=== PATIENT | female | born 1975 | race African-American/Black ===

== ENCOUNTER 2020-04-04 07:44 | Emergency (ER) | payer MEDICAID, OTHER ==
[~2020-04-04] VITALS: Ht 162.6 cm; Wt 91.0 kg
[2020-04-04] MEDS ORDERED: KETOROLAC 60MG/2ML VIAL IM ONE (08:30)
[2020-04-04 11:39] VITALS: BP 131/76
== END 2020-04-04 11:42 | disposition home or self-care (01) ==
LOC: ER 07:44
DX: S40.012A Contusion of left shoulder, initial encounter (principal); S20.212A Contusion of left front wall of thorax, initial encounter; R51.9 Headache, unspecified; Y08.89XA Assault by other specified means, initial encounter; Y93.9 Activity, unspecified; Y92.9 Unspecified place or not applicable
CPT/HCPCS: 70450; 73030; 74022; 93005; 96372; 99285; J1885